=== PATIENT | male | born 2005 | race Caucasian/White ===

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

== ENCOUNTER 2025-09-27 13:43 | Outpatient (AMB) | payer BC, SELFPAY ==
--- OUTSIDE RECORDS SUMMARY | 2025-09-27 08:30 | XMS_ITS | Encounter Summary ---
Author Organization [facility] Address [address] [place] [address] Phone Care Team Providers Care Armament Mechanic Name Role Phone Nenita Bardales MD Primary Care Provider Reason for Visit * Reason Comments Well Visit 19 yr Encounter Details Date Type Department Care Team (Late st Contact Info) Description 09/27/2025 8:30 AM EDT Office Visit [facility] [place] [address] [place] [address] Nenita Bardales MD [address] [place] [address] Well adult exam (Primary Dx); BMI (body mass index), pediatric, 5% to less than 85% for age; Dietary counseling and surveillance; Exercise counseling; Screening examination for bacterial and spirochetal disease; Need for vaccination Social History Tobacco Use Types Packs/Day Years Used Date Smoking Tobacco: Never Smokeless Tobacco: Never Alcohol Use Standard Drinks/Week Comments Never 0 (1 standard drink = 0.6 oz pur e alcohol) Hunger/Food Answer Date Recorded In the last 12 months, did y ou or your family ever eat less than you felt you should because there wasn't enough money for food? No 03/07/2024 Stable Housing Answer Date Recorded Are you worried that in the next 2 months you may not have stable housing? No 03/07/2024 Transportation Concerns Answer Date Rec orded In the last 12 months, have you or your family ever had to go without healthcare because you didn't have a way to get there? No 03/07/2024 Hazards in Home Answer Date Recorded Think about the place you li ve. Do you have problems with any of the following? Pests (mice or roaches), mold, no/not working smoke detectors, water leaks, no window guards. No 2023 Financing Utilities Answer Date Recorde d In the last 12 months, has t he electric, gas, oil, or water company threatened to shut off your services in your home? No 03/07/2024 Safety at Home Answer Date Recorded Are you or your family worried about feeling saf e in your home? No 03/07/2024 Outside Support Answer Date Recorded Do you feel that you need mo re support from other people or programs to help you care for yourself or your family? No 03/07/2024 Understanding Health Concerns Answer Da te Recorded Do you need help understandi ng your or your child's healthcare needs (diagnosis, medications, plan, etc.)? No 03/07/2024 Financing Health Concerns Answer Date R ecorded In the last 12 months, was t here a time when your child needed to see a doctor or get medications or supplies but could not because of cost? No 03/07/2024 Missing School or Work Answer Date Vega rded Did you or your child miss s chool or work because of a health problem that could have been avoided? No 03/07/2024 Child Education Answer Date Recorded Do you have concerns about y our/your child's learning or behavior in school, preschool, or daycare? No 03/07/2024 Sex and Gender Information Value Date Recorded Sex Assigned at Male 03/07/2024 10:25 AM EDT Legal Sex Male 5:07 PM EDT Gender Identity Male 03/07/2024 10:25 AM EDT Sexual Orientation Straight 03/07/2024 10 :25 AM EDT documented as of this encounter Last Filed Vital Signs Vital Sign Reading Time Taken Comments Blood Pressure 129/72 09/27/2025 8:31 AM EDT Pulse 59 09/27/2025 8:31 AM EDT Temperature - - Respiratory Rate - - Oxygen Saturation - - Inhaled Oxygen Concentration - - Weight 79.8 kg (176 lb) 09/27/2025 8:31 AM EDT Height 181.6 cm (5' 11.5 ) 09/27/2025 8:31 AM ED T Body Mass Index 24.2 09/27/2025 8:31 AM EDT documented in this encounter Patient Instructions * Patient Instructions* Nenita Bardales MD - 09/27/2025 8:30 AM EDT Images from the original note were not included. Well Visit, Ages 18 to 65: Care Instructions Well visits can help you stay healthy. Your doctor has checked your overall health and may have suggested ways to take good care of yourself. Your doctor also may have recommended tests. You can helpprevent illness with healthy eating, good sleep, vaccinations, regular exercise, and other steps. Get the tests that you and your doctor decide on. Depending on your age and risks, examples might include screening for diabetes; hepatitis C; HIV; and cervical, breast, lung, and colon cancer. Screening helps find diseases before any symptoms appear. Eat healthy foods. Choose fruits, vegetables, whole grains, lean protein, and low-fat dairy foods. Limit saturated fat and reduce salt. Limit alcohol. Men should have no more than 2 drinks a day. Women should have no more than 1. For some people, no alcohol is the best choice. Exercise. Get at least 30 minutes of exercise on most days of the week. Walking can be a good choice. Reach and stay at your healthy weight. This will lower your risk for many health problems. Take care of your mental health. Try to stay connected with friends, family, and community, and find ways to manage stress. If you're feeling depressed or hopeless, talk to someone. A counselor can help. If you don't have acounselor, talk to your doctor. Talk to your doctor if you think you may have a problem with alcohol or drug use. This includes prescription medicines, marijuana, and other drugs. Avoid tobacco and nicotine: Don't smoke, vape, or chew. If you need help quitting, talk to your doctor. Practice safer sex. Getting tested, using condoms or dental dams, and limiting sex partners can help prevent STIs. Use control if it's important to you to prevent . Talk with your doctor about your choices and what might be best for you. Prevent problems where you can. Protect your skin from too much sun, wash your hands, brush your teeth twice a day, and wear a seat belt in the car. Where can you learn more? Scan the Valuation App code or Go to https://www.[employer].net/patientEd Enter P072 in the search box to learn more about Well Visit, Ages 18 to 65: Care Instructions. Current as of: May 29, 2025 Content Version: 14.6 ?? Amen.. Care instructions adapted under license by your healthcare professional. If you have questions about a medical condition or this instruction, always ask your healthcare professional. Amen., disclaims any warranty or liability for your use of this information. Learning About Dental Care Basic dental care includes brushing and flossing your teeth. It also includes going to your dentistfor checkups and cleanings. This care can help your teeth last a long time. Brushing and flossing remove plaque. Plaque is bacteria that can cause gum disease and cavities (holes in your teeth from tooth decay). Brushing and flossing also remove bacteria that cause bad breath. And they help prevent stains on your teeth. What can you do to prevent dental problems? [place] your teeth twice a day, and floss at least once a day. Replace your toothbrush every 3 to 4 months. Choose a toothbrush with soft bristles. Use a fluoride toothpaste. Follow your dentist's directions on how to brush your teeth. Go to all your regular dental checkups and cleanings. Choose healthy foods that are good for your teeth and gums, such as whole grains, vegetables, and fruits. Avoid foods and drinks that contain a lot of sugar, and try not to snack before bedtime. Avoid using tobacco products, and talk to your doctor if you need help quitting. Where can you learn more? Scan the QR code or Go to https://www.[employer].net/patientEd Enter C432 in the search box to learn more about Learning About Dental Care. Current as of: June 28, 2024 Content Version: 14.6 ?? Amen.. Care instructions adapted under license by your healthcare professional. If you have questions about a medical condition or this instruction, always ask your healthcare professional. Amen., disclaims any warranty or liability for your use of this information. documented in this encounter Progress Notes * Nenita Bardales MD - 09/27/2025 8:30 AM EDT Chief Complaint Well Visit (19 yr) History of Present Illness Vernon is a 19yr male who presents to the office alone. Diet, Elimination, Education, Activities, Home Environment 09/27/2025 Today's visit was In-Person at [facility] Concerns today: None Interval History since last [facility]: There has been no change in health status since the last Well Visit Seen here for testicular pain U/S was neg for torsion Had varicoeles Referred to Urologist Has appt today No hosp, surg, ER visits Meds: None All: NKDA Any changes at home since last Well visit? no. Lives with mom, dad and brother Any Vision/Hearing concerns: No Any Developmental concerns: No DIET: healthy balanced diet, vegetables, fruits, cow's milk Drinks water, milk ELIMINATION: No concerns. regular soft stools, normal urine output SLEEP: sleeps well 11 pm to 7-8:30 am SCREENTIME: [place], OPPRTUNITY, ChiScan Not a lot DENTAL CARE: patient has a dental home, brushing 2+ times per day EDUCATION: [employer] Sophomore Doing well in college 3.5 GPA Studying finance Playing baseball - pitcher Likes Lao ACTIVITIES: Working at [employer] - 8 hours a week Works home football games Golfs a lot Likes to read - Liked [employer] in the Boat BEHAVIOR: No concerns HOME SAFETY: No second hand smoke exposure. No lead risk factors. *There ARE firearms in the home. No pool at the home. CO detectors in the home. Smoke detectors in the home. Fire extinguisher in thehome. Properly restrained in the car. Development PHQ-4 Anxiety Screen = 0 (Positive > 2) PHQ-4 Depression Screen = 0 (Positive > 2) . Review of Systems Medications No outpatient medications have been marked as taking for the 09/27/25 encounter (Office Visit) Rochelle Bardales MD. Allergies No Known Allergies Vital Signs BP 129/72 (BP Location: Right arm, Patient Position: Sitting) Pulse (!) 59 Ht 5' 11.5 (181.6 cm) Wt 176 lb (79.8 kg) BMI 24.20 kg/m?? Physical Exam General Well appearing, no acute distress HEENT Normocephalic/atraumatic, red reflex present bilaterally, TMs nl bilaterally, oropharynx clear, mucous membranes moist, neck supple, thyroid normal Cor Regular rate and rhythm, no murmurs Lungs Clear to auscultation bilaterally Chest/Back Symmetric chest, no scoliosis Abdomen Soft, non-distended, non-tender, no organomegaly, normal bowel sounds Normal male, testes down bilaterally, external genitalia sexual maturity stage 5 Extremities Warm, well perfused Skin No rash Neuro Normal strength upper and lower extremities, normal balance/gait, normal patellar reflexes bilaterally Labs No results found for any visits on 09/27/25. Assessment and Plan 1. Well adult exam Brief Behavioral Assessment - Normal (PSC,PHQ9,Kayla,etc) 2. BMI (body mass index), pediatric, 5% to less than 85% for age 3. Dietary counseling and surveillance 4. Exercise counseling 5. Screening examination for bacterial and spirochetal disease POCT Chlamydia and Gonorrhea Amplified 6. Need for vaccination Meningococcal B vaccine JOVANNY Jernigan 19 y/o young man here for [facility] Doing well in college Has good healthy habits Encouraged continued good self care 18-19 year [facility] additional A&P notes: - Safety was discussed and/or information was given - Bright Future Anticipatory Guidance Handout was given - Cell phone/internet safety was discussed - Healthy active lifestyle was reviewed - Smoking prevention was discussed - Teen High Risk behaviors were screened for & discussed - Transitioning to Adult Medical Provider was discussed - PHQ-4 reviewed - Immunizations were discussed & information was given - Flu vaccine was offered and was declined today - Coronavirus vaccine was offered and was declined today documented in this encounter Plan of Treatment Not on file documented as of this encounter Procedures * Due to [place] state law, this organization might not be sharing sensitive test results. Procedure Name Priority Date/Time Associated Diagnosis Comments POCT CHLAMYDIA AND GONORRHEA, AMPLIFIED Routine 09/27/2025 9:46 AM EDT Screening examination for bacterial and spirochetal disease BRIEF BEHAVIORAL ASSESSMENT - NORMAL(PSC,PHQ9,VAN DERBILT,ETC) Routine 09/27/2025 8:38 AM EDT Well adult exam documented in this encounter Results * Due to [place] state law, this organization might not be sharing sensitive test results. * POCT Chlamydia and Gonorrhea Amplified (09/27/2025 9:46 AM EDT) Chlamydia, POC NotDetected [facility] Gonorrhea, POC NotDetected [facility] Urine (Urine) 09/27/2025 9:4 6 AM EDT 09/27/2025 9:46 AM EDT Narrative [facility] - 09/27/2025 9:46 AM EDT [id number] ([id number]), [facility] [employer] Barn Technician: [email or web address] Testing Performed at [facility] [address] [place] [address] Director Of Sales Marketing: Juju Underwood DO CLIA: [id number] Nenita Bardales MD POINT OF CARE TEST ORDERABL ES Final Result [facility] [address] [place] [address] documented in this encounter Visit Diagnoses Diagnosis Well adult exam- Primary Routine general medical examination at a health care facility BMI (body mass index), pediatric, 5% to less than 85% for age Body Mass Index, pediatric, 5th percentile to less than 85th percentile for age Dietary counseling and surveillance Exercise counseling Screening examination for bacterial and spirochetal disease Screening examination for unspecified bacterial and spirochetal diseases Need for vaccination Need for prophylactic vaccination and inoculation against unspecified single disease documented in this encounter Care Teams Armament Mechanic Relationship Specialty Start Date End Date Nenita Bardales MD [address] [place] [address] PCP - General 07/09/17 documented as of this encounter
--- NOTE | 2025-09-27 13:49 | MHC.OFFVIS ---
Intake Visit Reasons: bilateral vericoceles- testicular pain Intake Note: New Patient is present for Testicular Pain/Varicoceles Urology Med: Antibiotic Allergy: None Blood Thinner: None Verification Engineer Required: No Student Services Vice President: Student Services Vice President Present Accompanied by: Mother Allergies No Known Allergies (No Known Allergies*) Allergy (Verified 09/27/25 13:51) HPI Comments Details: Vernon is a pleasant male. He is a patient of Dr. Rivera. He is seen for the following urologic conditions - varicocele - right inguinal pain Seven sports related right inguinal injury On exam consistent with right inguinal disruption Discussed pathophysiology and recovery as lead caster helper Incidental varicocele Ultrasound performed Left side grade 2 PFSH Medical History (Updated 09/27/25 @ 14:21 by Alfonso Miguel MD) Testicle pain Review of Systems Const Denies chills and Denies fever(s) Card Reports no additional complaints and Denies syncope Resp Denies cough GI Denies abdominal pain and Denies heartburn Reports as per HPI and Denies change in libido Neuro Denies syncope Psych Denies change in libido Endo Denies change in libido Physical Exam Const General: cooperative, healthy appearing, comfortable and no acute distress Orientation/consciousness: patient oriented x3 HEENT Face and sinus: Yes normal facial exam Mouth: moist mucous membranes Neck Neck: Yes normal visual inspection, Yes full ROM and Yes trachea midline Chest Chest palpation & inspection: normal inspection of the chest Resp Effort & Inspection: normal respiratory effort, able to speak in complete sentences and no respiratory distress GI Inspection: Yes normal to inspection Back/Spine/Pelvis Cervical Spine: normal cervical lordosis Thoracic/Lumbar Spine: thoracic and lumbar spine normal to inspection Skin General skin exam: no rashes or lesions noted Neuro General: patient oriented x3, gait normal, tone normal and moves all extremities Extrem General: Yes normal to inspection and Yes capillary refill normal Assessment & Plan Assessment & Plan (1) Groin pain: Code(s): R10.30 - Lower abdominal pain, unspecified Category: Medical (2) Varicocele: Code(s): I86.1 - Scrotal varices Category: Medical Plan P.r.n. follow-up Patient Instructions: This note is constructed using voice recognition software. While every effort has been made to ensure accuracy booster pump operator errors may have been included. Imaging studies, laboratory and physical exam results were discussed and reviewed in detail. No major barriers to patient understanding were identified. An opportunity to ask questions regarding the treatment plan was provided. All questions were answered. The patient expressed understanding and agreement with the above treatment plan. The patient is aware they should contact our office by phone for worsening of their current condition or the appearance of new urologic symptoms. Compliance is encouraged with any medications and followup testing that is ordered. It is a privilege to participate in the urologic care of your patient. If you have any questions or concerns regarding treatment for the above conditions, or other urologic issues, please do not hesitate to contact me. The office telephone contact is [phone]. Sincerely, Dr Alfonso Miguel MD, [facility] - Urology Compassionate Specialist Care for the Genitourinary System Coding Level of Care Code New Pt Level 3 (11884) Diagnoses Groin pain R10.30 Varicocele I86.1
--- OUTSIDE RECORDS SUMMARY | 2025-09-27 16:44 | XMS_ITS | Encounter Summary ---
Author Organization [facility] Address [address] [place] [address] Phone Care Team Providers Care Catering Sales Manager Name Role Phone Nenita Bardales MD Primary Care Provider Encounter Details Date Type Department Care Team (Late st Contact Info) Description 04/13/2017 Documentation [facility] [place] [address] [place] [address] Family Medicine, Physician [address] [place] [address] Social History Tobacco Use Types Packs/Day Years Used Date Smoking Tobacco: Never Assessed Sex and Gender Information Value Date Recorded Sex Assigned at Male 03/07/2024 10:25 AM EDT Legal Sex Male 5:07 PM EDT Gender Identity Male 03/07/2024 10:25 AM EDT Sexual Orientation Straight 03/07/2024 10 :25 AM EDT documented as of this encounter Plan of Treatment Not on file documented as of this encounter Visit Diagnoses Not on filedocumented in this encounter Care Teams Catering Sales Manager Relationship Specialty Start Date End Date Nenita Bardales MD [address] [place] [address] PCP - General 07/09/17 documented as of this encounter
--- OUTSIDE RECORDS SUMMARY | 2025-09-27 16:44 | XMS_ITS | Encounter Summary ---
Author Organization [facility] Address [address] [place] [phone] Phone Care Team Providers Care Supervisory Civil Engineer Name Role Phone Nenita Bardales MD Primary Care Provider Encounter Details Date Type Department Care Team (Late st Contact Info) Description 04/20/2010 Documentation [facility] [place] [address] [place] [address] Family Medicine, Physician [address] [place] [address] Social History Tobacco Use Types [...] on filedocumented in this encounter Care Teams Supervisory Civil Engineer Relationship Specialty Start Date End Date Nenita Bardales MD [address] [place] [address] PCP - General 07/09/17 documented as of this encounter
--- OUTSIDE RECORDS SUMMARY | 2025-09-27 16:44 | XMS_ITS | Encounter Summary ---
Author Organization [facility] Address [address] [place] [address] Phone Care Team Providers Care Oven Attendant Name Role Phone Nenita Bardales MD Primary Care Provider Encounter Details Date Type Department Care Team (Late st Contact Info) Description 07/15/2017 Conversion Encounter [facility] [place] [address] [place] [address] Social History Tobacco Use Types Packs/Day Years [...] on filedocumented in this encounter Care Teams Oven Attendant Relationship Specialty Start Date End Date Nenita Bardales MD [address] [place] [id number] PCP - General 07/09/17 documented as of this encounter
--- OUTSIDE RECORDS SUMMARY | 2025-09-27 16:44 | XMS_ITS | Encounter Summary ---
Author Organization [facility] Address [address] [place] [address] Phone Care Team Providers Care Agricultural Researcher Name Role Phone Nenita Bardales MD Primary Care Provider Encounter Details Date Type Department Care Team (Late st Contact Info) Description 09/18/2025 Results [facility] [address] [place] [address] Art Rutledge MD [address] [place] [address] Social History Tobacco Use Types Packs/Day Years [...] AM EDT documented as of this encounter Miscellaneous Notes * Result Encounter Note - Art Rutledge MD - 09/18/2025 5:40 PM EDT Referral to urology. Spoke to Vernon to explain results. If he hasn't heard from urology within 2 weeks, he will let me know. documented in this encounter Plan of Treatment Not on file documented as of this encounter Visit Diagnoses Not on filedocumented in this encounter Care Teams Agricultural Researcher Relationship Specialty Start Date End Date Nenita Bardales MD [address] [place] [address] [place] [address] PCP - General 07/09/17 documented as of this encounter
--- OUTSIDE RECORDS SUMMARY | 2025-09-27 16:44 | XMS_ITS | Encounter Summary ---
Author Organization [facility] Address [address] [place] [address] Phone Care Team Providers Care Global Lead Name Role Phone Nenita Bardales MD Primary Care Provider [phone] Encounter Details Date Type Department Care Team (Late st Contact Info) Description 10/22/[address] [facility] [place] Family Medicine [address] [place] [address] Family Medicine, Physician [address] [place] [address] Social History Tobacco Use Types [...] on filedocumented in this encounter Care Teams Global Lead Relationship Specialty Start Date End Date Nenita Bardales MD [address] [place] [address] PCP - General 07/09/17 documented as of this encounter
--- OUTSIDE RECORDS SUMMARY | 2025-09-27 16:44 | XMS_ITS ---
Author Name [facility] Organization Unknown History of Medication Use Medication Directions Dispensed Refills Start Date End Date Stat us No known medications No known medications active Problems Problem Status Onset Date Problem Type Date of Resolution Source Encounter for examination for participation in sport active Encounter[facility]osisAct [facility] Encounters Encounter Type Encounter Reason Primary Diagnosis Location Date Ambulatory Sports Physical Encounter for examination for participation in sport [facility] 07/25/2025 Care Team Organization Name Specialty Phone Email Start Date End Da te [facility] NO PCP Primary Care 07/25
--- OUTSIDE RECORDS SUMMARY | 2025-09-27 16:44 | XMS_ITS | Encounter Summary ---
Author Organization [facility] Address [address] [place] [phone] Phone Care Team Providers Care Market Research Coordinator Name Role Phone Nenita Bardales MD Primary Care Provider Encounter Details Date Type Department Care Team (Late st Contact Info) Description 02/09/2010 Documentation [facility] [place] Family Medicine [address] [place] [address] Family Medicine, Physician [address] [place] [address] Social History Tobacco Use Types [...] on filedocumented in this encounter Care Teams Market Research Coordinator Relationship Specialty Start Date End Date Nenita Bardales MD [address] [place] [phone] PCP - General 07/09/17 documented as of this encounter
--- OUTSIDE RECORDS SUMMARY | 2025-09-27 16:44 | XMS_ITS | Encounter Summary ---
Author Organization [facility] Address [address] [place] [id number] Phone Care Team Providers Care Radio Engineer Name Role Phone Nenita Bardales MD Primary Care Provider [phone] Encounter Details Date Type Department Care Team (Late st Contact Info) Description 11/19/[address] [facility] [place] [facility] [address] [place] [address] Family Medicine, Physician [address] [place] [address] Social History Tobacco Use Types [...] on filedocumented in this encounter Care Teams Radio Engineer Relationship Specialty Start Date End Date Nenita Bardales MD [address] [place] [id number] PCP - General 07/09/17 documented as of this encounter
--- OUTSIDE RECORDS SUMMARY | 2025-09-27 16:44 | XMS_ITS | Clinical Summary ---
Author Organization [facility] Address [address] [place] [phone] Phone Care Team Providers Care Guidance Adviser Name Role Phone Nenita Bardales MD Primary Care Provider [phone] Allergies No known active allergies Medications No known medications Active Problems Problem Noted Date Diagnosed Date Seasonal allergic rhinitis due to pollen 022 Overview (02/04/2022): Kaykay as needed. 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 If well, may return prn. Need for case management follow-up 02/03/2021 02/04/2022 Overview (02/03/2021): STD screen not done due to national shortage of tests Encounters Date Type Department Care Team Description 09/27/2025 8:30 AM EDT Office Visit [facility] - [address] [id number] Nenita Bardales MD Well adult exam (Primary Dx); BMI (body mass index), pediatric, 5% to less than 85% for age; Dietary counseling and surveillance; Exercise counseling; Screening examination for bacterial and spirochetal disease; Need for vaccination 09/18/2025 Results Follow-Up [facility] [address] [place] [address] Art Rutledge MD 09/18/2025 Orders Only [facility] [address] [place] [address] Art Rutledge MD Pain in right testicle (Primary Dx) 09/14/2025 1:15 PM EDT Office Visit [facility] [address] [place] [address] Art Rutledge MD Pain in right testicle (Primary Dx) 09/14/2025 Telephone [facility] [address] [place] [address] Alexus Nelson LPN medical question 09/14/[address] [address] Nenita Bardales MD Letter 09/13/2025 Telephone [facility] [address] [place] [address] Khadijah Lang LPN Testicle Pain from Last 3 Months Immunizations Immunization Administration Dates Next Due COVID-19 Pfizer, alla-sucros e, 12+ years 02/04/2022 DTaP / Hep B / IPV 04/19/2006,02/22/2006, 006 DTaP 5 11/18/2009,02/01/2007 H1N1 10/30/2009 HPV Vaccine 9 Valent 02/03/2021,01/31/2020 Hep A, ped/adol 04/21/2007,10/25/2006 Hep B, ped/adol 2005 Hib (HbOC) 02/01/2007 Hib (PRP-T) 04/19/2006,02/22/2006,2005 IPV 11/18/2009 Influenza Split 09/24/2011,12/08/2010 Influenza, injectable, MDCK, preservative free, quadrivalent 01/15/2017 Influenza, injectable, quadrivalent 09/06/2015 Influenza, injectable, quadr ivalent, preservative free 02/04/2022,08/24/2020,10/22/2019,10/15,10/28/2017 Influenza, injectable, trivalent 013,08/12/2009,10/29/2008,10/31,02/01/2007,10/25/2006 Influenza, intranasal, quadrivalent 10/17/2014,0 12/12/2013 MMR 11/18/2009,10/25/2006 Meningococcal B Trumenba 09/27/2025,03/07/2024 Meningococcal Conj (Menactra) MCV4P 02/04/2022,0 01/15/2017 Pneumococcal Conjugate 02/01/2007,2005,02/22/2006,12/21 Tdap 01/31/2020,08/28/2015 Varicella 11/18/2009,10/25/2006 Family History Medical History Relation Name Comments No Known Problems Brother Osbaldo Mittal No Known Problems Father Charanjit Mittal Diabetes Maternal Grandfather Heart attack Maternal Grandfather Stroke Maternal Grandfather Asthma Maternal Grandmother Hypertension Maternal Grandmother Stroke Maternal Grandmother Anxiety disorder Mother Michell Mittal Hernia Mother Michell Mittal Dementia Paternal Grandfather Relation Name Status Comments Brother Osbaldo Mittal Alive Brother: Ali ve and well Cousin Alive Cousin: PDD Father Charanjit Mittal Alive Father: Alive and well Maternal Grandfather Alive Materna l grandfather: *Heart Disease Maternal Grandmother Alive Materna l grandmother: Asthma Mother Michell Mittal Alive Mother: Asth ma Other No family histo ry of *Dental caries, No family history of *Thrombophilia, No family history of *CVA/Stroke, No family history of *Sudden /[place] under 55 Paternal Grandfather Alive Paternal Grandmother Social History Tobacco Use Types Packs/Day Years Used Date Smoking Tobacco: Never Smokeless Tobacco: Never Tobacco Cessation:Counseling Given: Yes Alcohol Use Standard Drinks/Week Comments Never 0 [...] Orientation Straight 03/07/2024 10 :25 AM EDT Last Filed Vital Signs Vital Sign Reading Time Taken Comments Blood Pressure 129/72 09/27/2025 8:31 AM EDT Pulse 59 09/27/2025 8:31 AM EDT Temperature 36.7 C (98.1 F) 09/14/2025 1:10 PM EDT Respiratory Rate - - Oxygen Saturation 99% 04/03/2010 12:00 AM EDT Inhaled Oxygen Concentration - - Weight 79.8 kg (176 lb) 09/27/2025 8:31 AM EDT Height 181.6 cm (5' 11.5 ) 09/27/2025 8:31 AM ED T Body Mass Index 24.2 09/27/2025 8:31 AM EDT Plan of Treatment Health Maintenance Due Date Last Done Comments Influenza Vaccines (#1) 2025 02/05/20, 08/24/2020, 10/22/2019, Additional history exists COVID-19 Vaccine (2024-12 6 season) 2025 02/04/2022, 07/02/2021, 06/06/2021 DTaP,Tdap,and Td Vaccines (7 - Td or Tdap) 01/30/2030 01/31/2020, 08/28/2015, 11/18/2009, Additional history exists Hepatitis B Vaccines Completed 04/19/2006, 02/22/2006, 2005, Additional history exists HIB Vaccines Completed 02/01/2007, 03/30, 02/22/2006, Additional history exists Pneumococcal Vaccine Completed 02/01/2007, 04/19/2006, 02/22/2006, Additional history exists Hepatitis A Vaccines Completed 04/21/2007, 10/25/20 06 IPV Vaccines Completed 11/18/2009, 03/30, 02/22/2006, Additional history exists MMR Vaccines Completed 11/18/2009, 10/25/2006 Varicella Vaccines Completed 11/18/2009, 10/25/2006 HPV Vaccines Completed 02/03/2021, 01/31/2020 Meningococcal Vaccine Completed 02/04/2022, 017 Men B Vaccine Completed 09/27/2025, 03/07/2024 Procedures * Due to [place] state law, this organization might not be sharing sensitive test results. Procedure Name Priority Date/Time Associated Diagnosis Comments POCT CHLAMYDIA AND GONORRHEA, AMPLIFIED Routine 09/27/2025 9:46 AM EDT Screening examination for bacterial and spirochetal disease BRIEF BEHAVIORAL ASSESSMENT - NORMAL(PSC,PHQ9,VAN DERBILT,ETC) Routine 09/27/2025 8:38 AM EDT Well adult exam US DUPLEX PELVIS ART/VEIN FLOW COMP Routine 09/14/2025 4:19 PM EDT Pain in right testicle US SCROTUM AND TESTICLES STAT 09/14/2025 4:19 PM EDT Pain in right testicle POCT URINALYSIS DIPSTICK Routine 09/14/2025 1:36 PM EDT Pain in right testicle from Last 3 Months Results * Due to [place] state law, this organization might not be sharing sensitive test results. * POCT Chlamydia and Gonorrhea Amplified (09/27/2025 9:46 AM EDT) Chlamydia, POC NotDetected [facility] Gonorrhea, POC NotDetected [facility] Urine (Urine) 09/27/2025 9:4 6 AM EDT 09/27/2025 9:46 AM EDT Narrative [facility] - 09/27/2025 9:46 AM EDT [id number] ([id number]), [facility] Flame Gouger: [email or web address] Testing Performed at [facility] [address] [place] [address] Catalyst Operator Gasoline: Juju Underwood DO CLIA: [id number] us Nenita Bardales MD POINT OF CARE TEST ORDERABL ES Final Result [facility] [address] [place] [address] * US DUPLEX PELVIS ART/VEIN FLOW COMP (09/14/2025 4:19 PM EDT) 09/14/2025 4:19 PM EDT Narrative [facility] - 09/17/2025 8:59 AM EDT US Scrotum and Contents, US Pelvic Doppler Comp Reason: Right testicular pain. COMPARISON: None TECHNIQUE: High-resolution sonography with grayscale, color and spectral Doppler analysis. FINDINGS: RIGHT: Right testicle size: 4.3 x 2.2 x 2.7 cm (13.6 cc). Normal right testicle size, contour and echotexture without focal lesions. Normal arterial and venous waveforms. Simple 0.4 cm epididymal head cyst. The epididymis is otherwise unremarkable. Varicocele extending into the scrotal sac measuring up to 0.3 cm with Valsalva maneuver. Trace hydrocele with echogenic debris measuring 1.8 x 1.9 x 1.8 cm, approximate volume 3.3 cc. LEFT: Left testicle size: 4.3 x 2.5 x 2.6 cm (14.8 cc). Normal left testicle size, contour and echotexture without focal lesions. Normal arterial and venous waveforms. Simple 1.5 x 1.4 x 1.7 cm cyst in the epididymal tail. The epididymis is otherwise unremarkable. Varicocele extending into the scrotal sac measuring up to 0.4 cm with Valsalva maneuver. No significant hydrocele. IMPRESSION: Normal testes without sonographic evidence of active testicular torsion. Mild bilateral varicoceles, left greater than right. Trace right hydrocele. WSN: [id number] Ordering Physician: Art Rutledge Dictated By: Jeferson Yo MD Dictated Date/Time: 09/17/25 8:59 am Reviewed By: Jeferson Yo MD Signed By: Jeferson Yo MD Signed Date/Time: 09/17/25 8:59 am Transcribed By: CSNahomi Transcribed Date/Time: 09/17/25 8:25 am us Art Rutledge MD CV VASCULAR PROCEDURES Final Re sult [facility] * Ultrasound scrotum and testicles (09/14/2025 4:19 PM EDT) Anatomical Region Laterality Modality Body Ultrasound 09/14/2025 4:19 PM EDT Narrative 09/17/2025 8:59 AM EDT US Scrotum and Contents, US Pelvic Doppler Comp Reason: Right testicular pain. COMPARISON: None TECHNIQUE: High-resolution sonography with grayscale, color and spectral Doppler analysis. FINDINGS: RIGHT: Right testicle size: 4.3 x 2.2 x 2.7 cm (13.6 cc). Normal right testicle size, contour and echotexture without focal lesions. Normal arterial and venous waveforms. Simple 0.4 cm epididymal head cyst. The epididymis is otherwise unremarkable. Varicocele extending into the scrotal sac measuring up to 0.3 cm with Valsalva maneuver. Trace hydrocele with echogenic debris measuring 1.8 x 1.9 x 1.8 cm, approximate volume 3.3 cc. LEFT: Left testicle size: 4.3 x 2.5 x 2.6 cm (14.8 cc). Normal left testicle size, contour and echotexture without focal lesions. Normal arterial and venous waveforms. Simple 1.5 x 1.4 x 1.7 cm cyst in the epididymal tail. The epididymis is otherwise unremarkable. Varicocele extending into the scrotal sac measuring up to 0.4 cm with Valsalva maneuver. No significant hydrocele. IMPRESSION: Normal testes without sonographic evidence of active testicular torsion. Mild bilateral varicoceles, left greater than right. Trace right hydrocele. WSN: [id number] Ordering Physician: Art Rutledge Dictated By: Jeferson Yo MD Dictated Date/Time: 09/17/25 8:59 am Reviewed By: Jeferson Yo MD Signed By: Jeferson Yo MD Signed Date/Time: 09/17/25 8:59 am Transcribed By: CSNahomi Transcribed Date/Time: 09/17/25 8:25 am us Art Rutledge MD IM US PROCEDURES Final Result * POCT urinalysis dipstick (09/14/2025 1:36 PM EDT) Leukocytes, Urine neg Negative n eg [facility] Nitrite, Urine neg Negative n eg [facility] Urobilinogen, Urine 0.2 0.1 - 1 mg/dL [facility] Protein, Urine neg Negative n eg [facility] pH, Urine 6.5 4.6 - 10 [facility] BLOOD neg Negative n eg [facility] Specific [place], Urine 1.020 1.0003 - 1.03 [facility] Ketones, Urine neg Negative n eg [facility] Bilirubin, Urine, POC neg Negative n eg [facility] Glucose neg Negative n eg [facility] Urine 09/14/2025 1:36 PM EDT 09/14/2025 1:36 PM EDT Narrative [facility] - 09/14/2025 1:36 PM EDT Edgar ([id number]), [facility] Flame Gouger: 01 Testing Performed at [facility] [address] [place] [address] Catalyst Operator Gasoline: Juju Underwood DO CLIA: [id number] Art Rutldege MD POINT OF CARE TEST ORDERABLES F inal Result [facility] [address] [place] [address] from Last [address] [place] [id number] [address] Care Teams Guidance Adviser Relationship Specialty Start Date End Date Nenita Bardales MD [address] [facility] [address] PCP - General 07/09/17
== END 2025-09-27 14:20 | disposition home or self-care (01) ==
PROVIDERS: PCP Pediatrics; Visit Provider Urology
DX: R10.30 Lower abdominal pain, unspecified (principal); I86.1 Scrotal varices
CPT/HCPCS: 99203